=== PATIENT | male | born 1990 | race African-American/Black ===

== ENCOUNTER 2016-09-28 19:43 | Emergency (ER) | payer OTHER ==
[~2016-09-28] VITALS: Ht 180.3 cm; Wt 90.0 kg
[2016-09-28] MEDS ORDERED: LITH300C3 PO (20:00)
[2016-09-28] MEDS ORDERED: BENZ1TAB10 PO (20:00)
[2016-09-28] MEDS ORDERED: ARIP5TAB9 PO (20:00)
[2016-09-28] MEDS ORDERED: QUET200T PO (20:00)
[2016-09-28] MEDS ORDERED: LOPERAMIDE HCL 2 MG CAPSULE PO ONE (21:00)
[2016-09-28] MEDS ORDERED: SODIUM CHLORIDE 0.9% 1,000 ML IV ONE (21:00)
[2016-09-28] MEDS ORDERED: ONDANSETRON HCL 4 MG/2 ML VIAL IVP ONE (21:00)
[2016-09-28 21:34] LABS: HEMATOCRIT 45.8 % (41-53); HEMOGLOBIN 15.2 g/dL (13.5-17.5); MEAN CORPUSCULAR HEMOGLOBIN 28.1 pg (26.0-34.0); MEAN CORPUSCULAR HGB CONC 33.2 G/dL (31.0-37.0); MEAN CORPUSCULAR VOLUME 85 fL (80-100); PLATELET COUNT (AUTO) 163 K/uL (150-450); RED BLOOD CELL COUNT(AUTO) 5.42 MIL/uL (4.50-5.90); RED CELL DISTRIBUTION WIDTH 13.6 % (11.5-14.5)
[2016-09-28 21:42] LABS: ANION GAP 14 mmol/L (8-16); CALCIUM, TOTAL 8.8 mg/dL (8.8-10.5); CARBON DIOXIDE 22 mmol/L (22-29); CHLORIDE 97 mmol/L (98-107); CREATININE 1.39 mg/dL (0.60-1.30); GLOMERULAR FILTR. RATE CALC > 60 mL/min (>60); POTASSIUM 3.7 mmol/L (3.5-5.1); SODIUM SERUM 133 mmol/L (136-145); UREA NITROGEN, BLOOD 9 mg/dL (7-18)
[2016-09-28 21:47] LABS: ALANINE AMINOTRANSFERASE 111 U/L (12-78); ALBUMIN 3.4 g/dL (3.4-5.0); ASPARTATE AMINOTRANSFERASE 134 U/L (15-37); BILIRUBIN,TOTAL 0.7 mg/dL (0.1-1.0); TOTAL PROTEIN, SERUM 7.9 g/dL (6.4-8.2)
[2016-09-28 22:00] VITALS: BP 135/77
[2016-09-28 22:07] LABS: BAND NEUTROPHILS % (MANUAL) 3 % (1-5); EOSINOPHILS % (MANUAL) 2 % (1-6); LYMPHOCYTES % (MANUAL) 25 % (22-44); REACTIVE LYMPHOCYTES 34 % (0-0); TOTAL CELLS COUNTED 100
[2016-09-28 22:08] LABS: RBC MORPHOLOGY COMMENT ABNORMAL RBC MORPH
[2016-09-28] MEDS ORDERED: ACETAMINOPHEN 325 MG TABLET PO ONE (22:15)
== END 2016-09-28 22:30 | disposition home or self-care (01) ==
LOC: EMS 19:46
DX: B34.9 Viral infection, unspecified (principal); R19.7 Diarrhea, unspecified; R11.0 Nausea
CPT/HCPCS: 36415; 80053; 85025; 96361; 96374; 99284; J2405; J7030